=== PATIENT | male | born 1955 | race Caucasian/White ===

== ENCOUNTER 2017-11-13 05:38 | Day surgery (SDC) | payer OTHER ==
[2017-11-13] MEDS ORDERED: ACETAMINOPHEN 1000 MG/100 ML IVPB (07:00)
[2017-11-13] MEDS ORDERED: DEXAMETHASONE 4 MG/ML 1 ML INJ (07:00)
[2017-11-13] MEDS ORDERED: LIDOCAINE 2% (SDV) 5 ML INJ (07:00)
[2017-11-13] MEDS ORDERED: CEFAZOLIN 1 GM INJ (07:00)
[2017-11-13] MEDS ORDERED: SODIUM CL BACTERIOSTATIC 30 ML INJ (07:24)
[2017-11-13] MEDS ORDERED: MIDAZOLAM 1 MG/ML 2 ML INJ (07:37)
[2017-11-13] MEDS ORDERED: FENTAnyl 50 MCG/ML VIAL (07:37)
[2017-11-13] MEDS ORDERED: PROPOFOL 20 ML (07:37)
[2017-11-13] MEDS ORDERED: ONDANSETRON 4 MG INJ (07:38)
[2017-11-13] MEDS: morphine SULFATE/PF (10 MG/10 ML) INJ (09:00)
[2017-11-13] MEDS ORDERED: FENTAnyl 50 MCG/ML VIAL IV ×2 (09:30)
[2017-11-13] MEDS ORDERED: ONDANSETRON 4 MG INJ IV (09:30)
[2017-11-13] MEDS ORDERED: KETOROLAC 30 MG INJ IV (09:30)
[2017-11-13] MEDS ORDERED: HYDROCODONE/APAP (5/325) TAB PO (09:30)
[2017-11-13] MEDS ORDERED: MEPERIDINE 25 MG INJ IV (09:30)
[2017-11-13] MEDS ORDERED: DIPHENHYDRAMINE 50 MG INJ IV (09:30)
[2017-11-13] MEDS ORDERED: HYDROmorphONE 1 MG/5 ML IV SYRINGE IV ×2 (09:30)
[2017-11-13] MEDS ORDERED: LABETALOL HCL 20MG INJ IV (09:30)
[2017-11-13] MEDS ORDERED: hydrALAzine 20 MG INJ (09:40)
[2017-11-13] MEDS: hydrALAzine 20 MG INJ IV (09:43)
[2017-11-13] MEDS: HYDROCODONE/APAP (5/325) TAB PO (10:01)
== END 2017-11-13 12:07 | disposition home or self-care (01) ==
LOC: SDS 05:38
DX: M23.222 Derangement of posterior horn of medial meniscus due to old tear or injury, left knee (principal); M23.252 Derangement of posterior horn of lateral meniscus due to old tear or injury, left knee; M65.862 Other synovitis and tenosynovitis, left lower leg; I50.9 Heart failure, unspecified; E66.01 Morbid (severe) obesity due to excess calories; Z68.41 Body mass index [BMI] 40.0-44.9, adult; I10 Essential (primary) hypertension; E11.9 Type 2 diabetes mellitus without complications
CPT/HCPCS: 29880; 71045; 82962; 97161

== ENCOUNTER 2018-06-11 01:41 | Emergency (ER) | payer OTHER ==
[2018-06-11] MEDS: morphine 4 MG/ML VIAL IM (02:30)
[2018-06-11] MEDS: HYDROCODONE/APAP (10/325) TAB PO (03:22)
== END 2018-06-11 06:35 | disposition home or self-care (01) ==
LOC: E/R 01:41
DX: L76.82 Other postprocedural complications of skin and subcutaneous tissue (principal); I50.9 Heart failure, unspecified; E11.9 Type 2 diabetes mellitus without complications; E66.01 Morbid (severe) obesity due to excess calories; R07.9 Chest pain, unspecified; Z79.01 Long term (current) use of anticoagulants
CPT/HCPCS: 71045; 93005; 99284-25

== ENCOUNTER 2018-06-20 02:08 | Inpatient (IN) | payer OTHER ==
[2018-06-20 02:45] LABS: WHITE BLOOD COUNT 7.7 10^3/ul (4.8-10.8)
[2018-06-20 02:45] LABS: ABNORMAL IP MESSAGE 1; ADD MAN DIFF? NO; BASOPHILS % 0.1 % (0.0-2.0); EOSINOPHILS # 0.3 10^3/ul (0.0-0.5); EOSINOPHILS % 3.9 % (0.0-7.0); HEMATOCRIT 24.7 % (42.0-52.0); LYMPHOCYTES % 12.7 % (15.0-51.0); MEAN CORPUSCULAR HEMOGLOBIN 29.7 pg (29.0-33.0); MEAN CORPUSCULAR HGB CONC 28.3 g/dl (32.0-37.0); MEAN CORPUSCULAR VOLUME 104.7 fl (82.0-101.0); MEAN PLATELET VOLUME 11.3 fl (7.4-10.4); MONOCYTE # 0.4 10^3/ul (0.3-0.9); MONOCYTES % 5.1 % (0.0-11.0); NEUTROPHILS % 77.8 % (39.0-77.0); PLATELET COUNT 124 10^3/UL (140-415); POSITIVE DIFF @See below; RED BLOOD COUNT 2.36 10^6/ul (4.70-6.10); RED CELL DISTRIBUTION WIDTH 19.1 % (11.5-14.5)
[2018-06-20 02:54] LABS: URINE BLOOD (Dip) POC 2+ (NEGATIVE); URINE GLUCOSE (Dip) POC Negative (NEGATIVE); URINE KETONES (Dip) POC Trace (NEGATIVE); URINE LEUKOCYTE EST (Dip) POC 1+ (NEGATIVE); URINE NITRITE (Dip) POC Negative (NEGATIVE); URINE TOTAL PROTEIN POC 3+ (NEGATIVE)
[2018-06-20 03:04] LABS: INR 1.82; PROTIME 21.2 Sec (11.9-14.9); PT RATIO 1.7
[2018-06-20 03:12] LABS: ALANINE AMINOTRANSFERASE 15 IU/L (13-69); ALBUMIN 3.3 g/dl (3.3-4.9); ALBUMIN/GLOBULIN RATIO 0.82; ALKALINE PHOSPHATASE 122 IU/L (42-121); ANION GAP 16 (5-13); ASPARTATE AMINO TRANSFERASE 29 IU/L (15-46); CALCIUM 8.7 mg/dl (8.4-10.2); CARBON DIOXIDE 36 mmol/L (21-31); CHLORIDE 84 mmol/L (97-110); CREATININE 7.17 mg/dl (0.61-1.24); Estimated GFR 8 mL/min (>60); GLUCOSE 166 mg/dl (70-220); SODIUM 136 mmol/L (135-144); TOTAL PROTEIN 7.3 g/dl (6.1-8.1)
[2018-06-20 03:30] LABS: BLOOD UREA NITROGEN 223 mg/dl (7-20)
[2018-06-20] MEDS: SODIUM CHLORIDE 0.9% 1L BAG IV* (04:32)
[2018-06-20] MEDS: PIPER-TAZO 2.25 GM (PMX) 50 ML IVPB (05:17)
[2018-06-20] MEDS: VANCOMYCIN 1 GM (PMX) 250 ML IVPB (05:45)
[2018-06-20 07:00] LABS: LACTIC ACID 1.3 mmol/L (0.5-2.0)
[2018-06-20 08:44] LABS: ADD MAN DIFF? NO
[2018-06-20 08:47] LABS: WHITE BLOOD COUNT 8.3 10^3/ul (4.8-10.8)
[2018-06-20 08:47] LABS: BASOPHILS % 0.1 % (0.0-2.0); EOSINOPHILS # 0.3 10^3/ul (0.0-0.5); EOSINOPHILS % 3.3 % (0.0-7.0); HEMATOCRIT 27.3 % (42.0-52.0); LYMPHOCYTES # 0.8 10^3/ul (0.8-2.9); LYMPHOCYTES % 9.7 % (15.0-51.0); MEAN CORPUSCULAR HGB CONC 29.3 g/dl (32.0-37.0); MEAN CORPUSCULAR VOLUME 102.2 fl (82.0-101.0); MONOCYTE # 0.4 10^3/ul (0.3-0.9); MONOCYTES % 4.8 % (0.0-11.0); NEUTROPHIL # 6.7 10^3/ul (1.6-7.5); NEUTROPHILS % 81.6 % (39.0-77.0); PLATELET COUNT 121 10^3/UL (140-415); RED BLOOD COUNT 2.67 10^6/ul (4.70-6.10); RED CELL DISTRIBUTION WIDTH 20.7 % (11.5-14.5)
[2018-06-20] MEDS ORDERED: SOD CHLORIDE 0.9% 1,000 ML IV (09:20)
[2018-06-20] MEDS ORDERED: ONDANSETRON 4 MG INJ IV (09:30)
[2018-06-20] MEDS ORDERED: ACETAMINOPHEN 650 MG SUPP PR (09:30)
[2018-06-20] MEDS ORDERED: BISACODYL 10 MG SUPP PR (09:30)
[2018-06-20] MEDS ORDERED: ACETAMINOPHEN 325 MG TAB PO (09:30)
[2018-06-20] MEDS ORDERED: NACL 0.9% 3 ML SYG IV (09:30)
[2018-06-20 09:32] LABS: ALANINE AMINOTRANSFERASE 20 IU/L (13-69); ALBUMIN 3.4 g/dl (3.3-4.9); ALBUMIN/GLOBULIN RATIO 0.85; ALKALINE PHOSPHATASE 135 IU/L (42-121); ANION GAP 16 (5-13); ASPARTATE AMINO TRANSFERASE 36 IU/L (15-46); BILIRUBIN,INDIRECT 0.1 mg/dl (0-1.1); BILIRUBIN,TOTAL 0.1 mg/dl (0.2-1.3); CALCIUM 8.6 mg/dl (8.4-10.2); CARBON DIOXIDE 33 mmol/L (21-31); CHLORIDE 86 mmol/L (97-110); CREATININE 6.83 mg/dl (0.61-1.24); Estimated GFR 8 mL/min (>60); GLUCOSE 158 mg/dl (70-220); POTASSIUM 5.2 mmol/L (3.5-5.1); SODIUM 135 mmol/L (135-144); TOTAL PROTEIN 7.4 g/dl (6.1-8.1)
[2018-06-20 09:35] LABS: URIC ACID 14.7 mg/dl (3.1-7.9)
[2018-06-20 09:39] LABS: BLOOD UREA NITROGEN 225 mg/dl (7-20)
[2018-06-20 09:43] LABS: TROPONIN-I 0.074 ng/ml (0.000-0.120)
[2018-06-20] MEDS ORDERED: GLUCAGON 1 MG INJ IM (10:30)
[2018-06-20] MEDS ORDERED: DEXTROSE 50% 50 ML SYRINGE IV ×2 (10:30)
[2018-06-20] MEDS ORDERED: GLUCOSE GEL 15 GRAM TUBE PO ×2 (10:30)
[2018-06-20] MEDS ORDERED: GLUCOSE GEL 15 GRAM TUBE BUCCAL (10:30)
[2018-06-20 10:33] LABS: HEMOGLOBIN A1C 5.8 % (0-5.9)
[2018-06-20 10:56] LABS: CREATINE KINASE 40 IU/L (23-200)
[2018-06-20 11:12] LABS: IRON 41 ug/dl (35-150)
[2018-06-20 11:21] LABS: % IRON SATURATION 18 % SAT (22-52); TOTAL IRON BINDING CAPACITY 223 ug/dl (241-421)
[2018-06-20 11:24] LABS: AADO2 Arterial 33.1 mmHg (7.0-24.0); Allen Test ACCEPTAB; Arterial Base Excess 8.8 mmol/L (-3.0-3); Arterial Blood Gas Oxygen Sat 95.6 mmHG (95.0-98.0); Arterial COHb 0.9 % (0.0-3.0); Arterial Fraction of Oxyhgb 94.3 % (93.0-99.0); Arterial HCO3 35.9 mmol/L (22.0-26.0); Arterial MetHb 0.5 % (0.0-1.5); Arterial pCO2 67.3 mmhg (35-45); MODE TRACH COLLAR; Site Right Radial
[2018-06-20] MEDS: ALLOPURINOL 100 MG TAB PO (11:40)
[2018-06-20] MEDS: FAMOTIDINE 20 MG INJ IV (11:40)
[2018-06-20] MEDS: INSULIN ASPART [NOVOLOG] 3 ML PEN SC ×3 (11:47→23:45)
[2018-06-20] MEDS ORDERED: MANNITOL 25% 50 ML IV (12:30)
[2018-06-20] MEDS ORDERED: HEPARIN 1000 UNITS/ML 10 ML INJ CATHETER (12:30)
[2018-06-20] MEDS ORDERED: SODIUM CHLORIDE 0.9% 1L BAG IV (12:30)
[2018-06-20 13:43] LABS: B-TYPE NATRIURETIC PEPTIDE 62500 PG/ML (0-125)
[2018-06-20 14:08] LABS: ADD UMIC YES; UR ASCORBIC ACID NEGATIVE (NEGATIVE); UR BACTERIA MANY /HPF (NONE SEEN); UR BILIRUBIN (Dip) NEGATIVE (NEGATIVE); UR BLOOD (Dip) 3+ mg/dL (NEGATIVE); UR CLARITY TURBID (CLEAR); UR COLOR AMBER (YELLOW); UR GLUCOSE (Dip) NEGATIVE (NEGATIVE); UR KETONES (Dip) NEGATIVE (NEGATIVE); UR LEUKOCYTE ESTERASE (Dip) 3+ Leu/ul (NEGATIVE); UR MUCUS FEW /HPF (NONE SEEN); UR NITRITE (Dip) NEGATIVE (NEGATIVE); UR RBC > 182 /HPF (0-5); UR RENAL EPITHELIAL CELL FEW /HPF (NONE SEEN); UR SPECIFIC GRAVITY (Dip) 1.018 (1.003-1.030); UR SQUAMOUS EPITHELIAL CELL FEW /HPF (FEW); UR TOTAL PROTEIN (Dip) 2+ mg/dl (NEGATIVE); UR UROBILINOGEN (Dip) NEGATIVE (NEGATIVE); UR WBC > 182 /HPF (0-5)
[2018-06-20 15:18] LABS: HAAIG REFLEX REFLEX FILED
[2018-06-20 15:45] LABS: CREATINE KINASE 38 IU/L (23-200)
[2018-06-20 15:57] LABS: CK INDEX 16.7; TROPONIN-I 0.053 ng/ml (0.000-0.120)
[2018-06-20 15:58] LABS: CK-MB 6.34 ng/ml (0.0-2.4)
[2018-06-20 16:25] LABS: HEPATITIS B SURFACE ANTIGEN NEGATIVE (NEGATIVE)
[2018-06-20 16:43] LABS: HEPATITIS B CORE ANTIBODY NEGATIVE (NEGATIVE); HEPATITIS C VIRAL ANTIBODY NEGATIVE (NEGATIVE)
[2018-06-20] MEDS: morphine SULFATE/PF (2 MG/2 ML) SYG IV (17:26)
[2018-06-20] MEDS: HEPARIN 5,000 UNIT/1 ML VIAL SC (21:00)
[2018-06-21] MEDS: INSULIN GLARGINE [LANTus] (100 UNITS/ML) SYG SC ×2 (01:01→21:06)
[2018-06-21] MEDS: LORAZEPAM 2 MG INJ IV ×2 (01:02→11:18)
[2018-06-21] MEDS: ACCU-CHEK XX (02:00)
[2018-06-21 05:39] LABS: ADD MAN DIFF? NO
[2018-06-21 05:47] LABS: BASOPHILS % 0.3 % (0.0-2.0); EOSINOPHILS # 0.3 10^3/ul (0.0-0.5); HEMATOCRIT 25.9 % (42.0-52.0); HEMOGLOBIN 7.6 g/dl (14.0-18.0); LYMPHOCYTES # 0.6 10^3/ul (0.8-2.9); LYMPHOCYTES % 6.3 % (15.0-51.0); MEAN CORPUSCULAR HEMOGLOBIN 29.7 pg (29.0-33.0); MEAN CORPUSCULAR HGB CONC 29.3 g/dl (32.0-37.0); MEAN CORPUSCULAR VOLUME 101.2 fl (82.0-101.0); MEAN PLATELET VOLUME 12.2 fl (7.4-10.4); MONOCYTE # 0.4 10^3/ul (0.3-0.9); NEUTROPHIL # 8.2 10^3/ul (1.6-7.5); PLATELET COUNT 136 10^3/UL (140-415); RED BLOOD COUNT 2.56 10^6/ul (4.70-6.10); RED CELL DISTRIBUTION WIDTH 20.8 % (11.5-14.5)
[2018-06-21 05:47] LABS: WHITE BLOOD COUNT 9.5 10^3/ul (4.8-10.8)
[2018-06-21 06:07] LABS: ANION GAP 16 (5-13); CALCIUM 8.4 mg/dl (8.4-10.2); CARBON DIOXIDE 35 mmol/L (21-31); CHLORIDE 84 mmol/L (97-110); CHOL/HDL RATIO 4.7 RATIO; CHOLESTEROL 91 mg/dl (100-200); Estimated GFR 7 mL/min (>60); GLUCOSE 121 mg/dl (70-220); HDL CHOLESTEROL 19 mg/dl (30-78); LDL CHOLESTEROL,CALCULATED 41 mg/dl; MAGNESIUM 3.4 mg/dl (1.7-2.5); POTASSIUM 5.3 mmol/L (3.5-5.1); SODIUM 135 mmol/L (135-144); TRIGLYCERIDES 154 mg/dl (0-149)
[2018-06-21] MEDS: BUMETANIDE 1 MG INJ IV ×2 (06:08→17:45)
[2018-06-21 06:22] LABS: BLOOD UREA NITROGEN 228 mg/dl (7-20)
[2018-06-21] MEDS: INSULIN ASPART [NOVOLOG] 3 ML PEN SC ×4 (07:35→20:57)
[2018-06-21] MEDS: HEPARIN 5,000 UNIT/1 ML VIAL SC ×3 (09:00→21:00)
[2018-06-21] MEDS ORDERED: NEBIVOLOL 5 MG TAB PO (09:00)
[2018-06-21] MEDS: NEBIVOLOL 5 MG TAB PO (09:00)
[2018-06-21] MEDS: CHOLECALCIFEROL 1,000 UNIT TAB PO (09:37)
[2018-06-21] MEDS: CYANOCOBALAMIN 100 MCG TAB PO (09:37)
[2018-06-21] MEDS: FOLIC ACID 1 MG TAB PO (09:37)
[2018-06-21] MEDS: ALLOPURINOL 100 MG TAB PO (09:37)
[2018-06-21] MEDS: FAMOTIDINE 20 MG INJ IV (09:37)
[2018-06-21] MEDS: AMIODARONE 200 MG TAB PO (09:44)
[2018-06-21 10:24] LABS: INR 1.62; PARTIAL THROMBOPLASTIN TIME 34.8 Sec (23.0-35.0); PROTIME 19.3 Sec (11.9-14.9); PT RATIO 1.5
[2018-06-21] MEDS ORDERED: HEPARIN (10 UNITS/ML) 5ML SYG (10:50)
[2018-06-21] MEDS ORDERED: COLLAGENASE 5 GM (UD JAR) TOP (13:00)
[2018-06-21] MEDS: COLLAGENASE 5 GM (UD JAR) TOP (13:00)
[2018-06-21] MEDS ORDERED: PIPER-TAZO 3.375 GM IV (PMX) 100 ML IVPB (14:00)
[2018-06-21] MEDS: PIPER-TAZO 2.25 GM (PMX) 50 ML IVPB ×2 (17:45→21:09)
[2018-06-21] MEDS: DESMOPRESSIN 20 MCG in SOD CHLORIDE 0.9% 50 ML IVPB (22:42)
[2018-06-22] MEDS: ACCU-CHEK XX (01:44)
[2018-06-22] MEDS: MANNITOL 20% 62.5 ML IV ×4 (02:03→16:21)
[2018-06-22] MEDS: ALBUMIN HUMAN 25% 100 ML IV (02:16)
[2018-06-22] MEDS ORDERED: HEPARIN 1000 UNITS/ML 10 ML INJ (04:36)
[2018-06-22] MEDS: HEPARIN 1000 UNITS/ML 10 ML INJ CATHETER ×2 (04:54→17:33)
[2018-06-22] MEDS: PIPER-TAZO 2.25 GM (PMX) 50 ML IVPB ×3 (05:24→22:00)
[2018-06-22] MEDS: BUMETANIDE 1 MG INJ IV ×2 (05:27→18:27)
[2018-06-22 06:00] LABS: ADD MAN DIFF? NO
[2018-06-22 06:13] LABS: WHITE BLOOD COUNT 6.6 10^3/ul (4.8-10.8)
[2018-06-22 06:13] LABS: ABNORMAL IP MESSAGE 1; BASOPHILS % 0.2 % (0.0-2.0); EOSINOPHILS # 0.3 10^3/ul (0.0-0.5); EOSINOPHILS % 4.7 % (0.0-7.0); HEMATOCRIT 23.7 % (42.0-52.0); LYMPHOCYTES # 0.5 10^3/ul (0.8-2.9); LYMPHOCYTES % 7.3 % (15.0-51.0); MEAN CORPUSCULAR HEMOGLOBIN 29.9 pg (29.0-33.0); MEAN CORPUSCULAR HGB CONC 29.5 g/dl (32.0-37.0); MEAN CORPUSCULAR VOLUME 101.3 fl (82.0-101.0); MEAN PLATELET VOLUME 11.9 fl (7.4-10.4); MONOCYTE # 0.3 10^3/ul (0.3-0.9); MONOCYTES % 4.6 % (0.0-11.0); NEUTROPHIL # 5.4 10^3/ul (1.6-7.5); NEUTROPHILS % 82.6 % (39.0-77.0); PLATELET COUNT 152 10^3/UL (140-415); POSITIVE DIFF @See below; RED BLOOD COUNT 2.34 10^6/ul (4.70-6.10); RED CELL DISTRIBUTION WIDTH 20.7 % (11.5-14.5)
[2018-06-22 06:37] LABS: INR 1.42; PROTIME 17.5 Sec (11.9-14.9); PT RATIO 1.4
[2018-06-22 06:46] LABS: ANION GAP 15 (5-13); CALCIUM 8.3 mg/dl (8.4-10.2); CARBON DIOXIDE 33 mmol/L (21-31); CHLORIDE 87 mmol/L (97-110); CREATININE 5.57 mg/dl (0.61-1.24); Estimated GFR 10 mL/min (>60); GLUCOSE 95 mg/dl (70-220); POTASSIUM 4.5 mmol/L (3.5-5.1); SODIUM 135 mmol/L (135-144)
[2018-06-22 06:50] LABS: MAGNESIUM 2.9 mg/dl (1.7-2.5)
[2018-06-22 06:50] LABS: PHOSPHORUS 7.7 mg/dl (2.5-4.9)
[2018-06-22 07:00] LABS: BLOOD UREA NITROGEN 160 mg/dl (7-20)
[2018-06-22] MEDS: NEBIVOLOL 5 MG TAB PO (08:29)
[2018-06-22] MEDS: FOLIC ACID 1 MG TAB PO (08:41)
[2018-06-22] MEDS: CYANOCOBALAMIN 100 MCG TAB PO (08:41)
[2018-06-22] MEDS: FAMOTIDINE 20 MG INJ IV (08:41)
[2018-06-22] MEDS: ALLOPURINOL 100 MG TAB PO (08:41)
[2018-06-22] MEDS: COLLAGENASE 5 GM (UD JAR) TOP (08:41)
[2018-06-22] MEDS: CHOLECALCIFEROL 1,000 UNIT TAB PO (08:44)
[2018-06-22] MEDS: HEPARIN 5,000 UNIT/1 ML VIAL SC (09:00)
[2018-06-22] MEDS: AMIODARONE 200 MG TAB PO (09:33)
[2018-06-22 11:03] LABS: AADO2 Arterial 55.3 mmHg (7.0-24.0); Allen Test ACCEPTAB; Arterial Base Excess 7.1 mmol/L (-3.0-3); Arterial Blood Gas Oxygen Sat 95.3 mmHG (95.0-98.0); Arterial COHb 0.9 % (0.0-3.0); Arterial Fraction of Oxyhgb 94.2 % (93.0-99.0); Arterial HCO3 32.7 mmol/L (22.0-26.0); Arterial MetHb 0.3 % (0.0-1.5); Arterial pCO2 53.6 mmhg (35-45); MODE TRACH COLLAR; Site Right Radial
[2018-06-22] MEDS: Insulin NOVOLOG SS MILD Algorithm (NPO/TPN/ENTERAL FEEDS) SC ×2 (11:52→18:43)
[2018-06-22] MEDS ORDERED: INSULIN ASPART [NOVOLOG] 3 ML PEN SC (12:00)
[2018-06-22] MEDS: morphine 4 MG/ML VIAL IV (15:08)
[2018-06-22] MEDS: SOD CHLORIDE 0.9% 250 ML IV* (16:00)
[2018-06-22 16:11] LABS: IMMEDIATE SPIN CROSSMATCH 1 3
[2018-06-22] MEDS: INSULIN GLARGINE [LANTus] (100 UNITS/ML) SYG SC (20:04)
[2018-06-23 00:30] LABS: AADO2 Arterial 63.8 mmHg (7.0-24.0); Allen Test ACCEPTAB; Arterial Base Excess 2.7 mmol/L (-3.0-3); Arterial Blood Gas Oxygen Sat 95.6 mmHG (95.0-98.0); Arterial COHb 0.8 % (0.0-3.0); Arterial Fraction of Oxyhgb 94.5 % (93.0-99.0); Arterial HCO3 27.7 mmol/L (22.0-26.0); Arterial MetHb 0.3 % (0.0-1.5); Arterial pCO2 44.9 mmhg (35-45); MODE TRACH COLLAR; Site Right Radial
[2018-06-23] MEDS: ACCU-CHEK XX (02:00)
[2018-06-23 04:10] LABS: OCCULT BLOOD STOOL NEGATIVE (NEGATIVE)
[2018-06-23 04:50] LABS: AADO2 Arterial 48.1 mmHg (7.0-24.0); Allen Test ACCEPTAB; Arterial Base Excess 4.9 mmol/L (-3.0-3); Arterial Blood Gas Oxygen Sat 96.6 mmHG (95.0-98.0); Arterial Fraction of Oxyhgb 95.3 % (93.0-99.0); Arterial HCO3 30.5 mmol/L (22.0-26.0); Arterial MetHb 0.3 % (0.0-1.5); Arterial pCO2 49.6 mmhg (35-45); MODE TRACH COLLAR; Site Right Radial
[2018-06-23 05:10] LABS: ADD MAN DIFF? NO
[2018-06-23 05:17] LABS: BASOPHILS % 0.3 % (0.0-2.0); EOSINOPHILS # 0.2 10^3/ul (0.0-0.5); EOSINOPHILS % 2.1 % (0.0-7.0); HEMOGLOBIN 7.5 g/dl (14.0-18.0); LYMPHOCYTES # 0.9 10^3/ul (0.8-2.9); LYMPHOCYTES % 8.8 % (15.0-51.0); MEAN PLATELET VOLUME 11.2 fl (7.4-10.4); MONOCYTE # 0.5 10^3/ul (0.3-0.9); NEUTROPHIL # 8.2 10^3/ul (1.6-7.5); NEUTROPHILS % 83.2 % (39.0-77.0); PLATELET COUNT 166 10^3/UL (140-415); RED CELL DISTRIBUTION WIDTH 20.9 % (11.5-14.5)
[2018-06-23 05:17] LABS: WHITE BLOOD COUNT 9.8 10^3/ul (4.8-10.8)
[2018-06-23] MEDS: PIPER-TAZO 2.25 GM (PMX) 50 ML IVPB ×3 (05:18→21:10)
[2018-06-23] MEDS: BUMETANIDE 1 MG INJ IV ×2 (05:18→17:05)
[2018-06-23 05:41] LABS: ANION GAP 13 (5-13); BLOOD UREA NITROGEN 111 mg/dl (7-20); CALCIUM 8.5 mg/dl (8.4-10.2); CARBON DIOXIDE 33 mmol/L (21-31); CHLORIDE 91 mmol/L (97-110); CREATININE 5.13 mg/dl (0.61-1.24); Estimated GFR 11 mL/min (>60); GLUCOSE 116 mg/dl (70-220); POTASSIUM 4.7 mmol/L (3.5-5.1); SODIUM 137 mmol/L (135-144)
[2018-06-23 05:42] LABS: PHOSPHORUS 6.5 mg/dl (2.5-4.9)
[2018-06-23 05:42] LABS: MAGNESIUM 2.7 mg/dl (1.7-2.5)
[2018-06-23] MEDS: Insulin NOVOLOG SS MILD Algorithm (NPO/TPN/ENTERAL FEEDS) SC ×4 (05:47→18:30)
[2018-06-23] MEDS: NEBIVOLOL 5 MG TAB PO (09:00)
[2018-06-23] MEDS: ALLOPURINOL 100 MG TAB PO (09:15)
[2018-06-23] MEDS: AMIODARONE 200 MG TAB PO (09:15)
[2018-06-23] MEDS: CHOLECALCIFEROL 1,000 UNIT TAB PO (09:15)
[2018-06-23] MEDS: CYANOCOBALAMIN 100 MCG TAB PO (09:15)
[2018-06-23] MEDS: COLLAGENASE 5 GM (UD JAR) TOP (09:16)
[2018-06-23] MEDS: FOLIC ACID 1 MG TAB PO (09:22)
[2018-06-23] MEDS: FAMOTIDINE 20 MG INJ IV (09:22)
[2018-06-23] MEDS: MANNITOL 20% 62.5 ML IV ×2 (13:24→15:26)
[2018-06-23] MEDS: ALBUMIN HUMAN 25% 100 ML IV (14:22)
[2018-06-23] MEDS ORDERED: HEPARIN 1000 UNITS/ML 10 ML INJ (16:04)
[2018-06-23] MEDS: HEPARIN 1000 UNITS/ML 10 ML INJ CATHETER (16:19)
[2018-06-23] MEDS: INSULIN GLARGINE [LANTus] (100 UNITS/ML) SYG SC (20:11)
[2018-06-24] MEDS: ACCU-CHEK XX (02:00)
[2018-06-24 05:13] LABS: ADD MAN DIFF? NO
[2018-06-24 05:21] LABS: BASOPHILS % 0.1 % (0.0-2.0); EOSINOPHILS # 0.4 10^3/ul (0.0-0.5); EOSINOPHILS % 3.5 % (0.0-7.0); HEMATOCRIT 25.5 % (42.0-52.0); HEMOGLOBIN 7.4 g/dl (14.0-18.0); LYMPHOCYTES # 0.9 10^3/ul (0.8-2.9); LYMPHOCYTES % 8.5 % (15.0-51.0); MEAN CORPUSCULAR HEMOGLOBIN 29.5 pg (29.0-33.0); MEAN CORPUSCULAR VOLUME 101.6 fl (82.0-101.0); MEAN PLATELET VOLUME 11.3 fl (7.4-10.4); MONOCYTE # 0.6 10^3/ul (0.3-0.9); MONOCYTES % 5.5 % (0.0-11.0); NEUTROPHIL # 8.2 10^3/ul (1.6-7.5); NEUTROPHILS % 81.8 % (39.0-77.0); PLATELET COUNT 143 10^3/UL (140-415); RED BLOOD COUNT 2.51 10^6/ul (4.70-6.10); RED CELL DISTRIBUTION WIDTH 20.7 % (11.5-14.5)
[2018-06-24] MEDS: PIPER-TAZO 2.25 GM (PMX) 50 ML IVPB ×3 (05:40→22:09)
[2018-06-24] MEDS: BUMETANIDE 1 MG TAB GTB ×2 (05:40→18:13)
[2018-06-24] MEDS: Insulin NOVOLOG SS MILD Algorithm (NPO/TPN/ENTERAL FEEDS) SC ×5 (05:44→23:50)
[2018-06-24 06:02] LABS: ANION GAP 13 (5-13); BLOOD UREA NITROGEN 83 mg/dl (7-20); CALCIUM 8.8 mg/dl (8.4-10.2); CARBON DIOXIDE 29 mmol/L (21-31); CHLORIDE 95 mmol/L (97-110); CREATININE 4.62 mg/dl (0.61-1.24); Estimated GFR 13 mL/min (>60); GLUCOSE 112 mg/dl (70-220); POTASSIUM 4.4 mmol/L (3.5-5.1); SODIUM 137 mmol/L (135-144)
[2018-06-24] MEDS: NEBIVOLOL 5 MG TAB PO (08:30)
[2018-06-24] MEDS: FAMOTIDINE 20 MG INJ IV (08:47)
[2018-06-24] MEDS: AMIODARONE 200 MG TAB PO ×2 (08:48→09:18)
[2018-06-24] MEDS: CHOLECALCIFEROL 1,000 UNIT TAB PO (08:48)
[2018-06-24] MEDS: FOLIC ACID 1 MG TAB PO (08:48)
[2018-06-24] MEDS: COLLAGENASE 5 GM (UD JAR) TOP ×2 (08:48→22:08)
[2018-06-24] MEDS: CYANOCOBALAMIN 100 MCG TAB PO (08:48)
[2018-06-24] MEDS: ALLOPURINOL 100 MG TAB PO ×2 (08:49→09:18)
[2018-06-24] MEDS ORDERED: LIDOCAINE 1% (MDV) 20 ML INJ (10:57)
[2018-06-24] MEDS ORDERED: HEPARIN 1000 UNITS/ML 10 ML INJ (10:57)
[2018-06-24] MEDS: LORAZEPAM 2 MG INJ IV (13:07)
[2018-06-24] MEDS: INSULIN GLARGINE [LANTus] (100 UNITS/ML) SYG SC (20:00)
[2018-06-24] MEDS: morphine 4 MG/ML VIAL IV (21:12)
[2018-06-25] MEDS: LORAZEPAM 2 MG INJ IV ×2 (00:09→23:45)
[2018-06-25] MEDS: INSULIN GLARGINE [LANTus] (100 UNITS/ML) SYG SC ×2 (00:31→21:35)
[2018-06-25] MEDS: ACCU-CHEK XX (02:00)
[2018-06-25] MEDS: Insulin NOVOLOG SS MILD Algorithm (NPO/TPN/ENTERAL FEEDS) SC ×3 (06:00→18:00)
[2018-06-25] MEDS: PIPER-TAZO 2.25 GM (PMX) 50 ML IVPB ×3 (06:21→21:19)
[2018-06-25] MEDS: BUMETANIDE 1 MG TAB GTB ×2 (06:22→18:01)
[2018-06-25] MEDS: NEBIVOLOL 5 MG TAB PO (09:00)
[2018-06-25] MEDS: FAMOTIDINE 20 MG INJ IV (09:39)
[2018-06-25] MEDS: FOLIC ACID 1 MG TAB PO (09:39)
[2018-06-25] MEDS: ALLOPURINOL 100 MG TAB PO (09:39)
[2018-06-25] MEDS: CYANOCOBALAMIN 100 MCG TAB PO (09:39)
[2018-06-25] MEDS: CHOLECALCIFEROL 1,000 UNIT TAB PO (09:39)
[2018-06-25] MEDS: AMIODARONE 200 MG TAB PO (09:39)
[2018-06-25] MEDS: COLLAGENASE 5 GM (UD JAR) TOP (09:39)
[2018-06-25] MEDS: BARIUM SULFATE 135 ML (E-Z HD) PO (11:34)
[2018-06-25] MEDS ORDERED: HEPARIN 1000 UNITS/ML 10 ML INJ (17:07)
[2018-06-25] MEDS: HEPARIN 1000 UNITS/ML 10 ML INJ CATHETER (18:21)
[2018-06-25] MEDS: QUETIAPINE 25 MG TAB PO (21:20)
[2018-06-26] MEDS: ACCU-CHEK XX (02:00)
[2018-06-26] MEDS: BUMETANIDE 1 MG TAB GTB ×2 (05:22→17:38)
[2018-06-26] MEDS: Insulin NOVOLOG SS MILD Algorithm (NPO/TPN/ENTERAL FEEDS) SC ×4 (05:23→17:45)
[2018-06-26] MEDS: LORAZEPAM 2 MG INJ IV (05:23)
[2018-06-26] MEDS: PIPER-TAZO 2.25 GM (PMX) 50 ML IVPB ×3 (05:23→21:43)
[2018-06-26] MEDS: NEBIVOLOL 5 MG TAB PO (09:00)
[2018-06-26] MEDS: COLLAGENASE 5 GM (UD JAR) TOP (09:25)
[2018-06-26] MEDS: CHOLECALCIFEROL 1,000 UNIT TAB PO (09:26)
[2018-06-26] MEDS: FAMOTIDINE 20 MG INJ IV (09:26)
[2018-06-26] MEDS: CYANOCOBALAMIN 100 MCG TAB PO (09:26)
[2018-06-26] MEDS: AMIODARONE 200 MG TAB PO (09:26)
[2018-06-26] MEDS: FOLIC ACID 1 MG TAB PO (09:26)
[2018-06-26] MEDS: ALLOPURINOL 100 MG TAB PO (09:26)
[2018-06-26] MEDS: QUETIAPINE 25 MG TAB PO (21:44)
[2018-06-26] MEDS: INSULIN GLARGINE [LANTus] (100 UNITS/ML) SYG SC (22:20)
[2018-06-27] MEDS: ACCU-CHEK XX (02:00)
[2018-06-27] MEDS: Insulin NOVOLOG SS MILD Algorithm (NPO/TPN/ENTERAL FEEDS) SC ×4 (02:42→17:29)
[2018-06-27] MEDS: BUMETANIDE 1 MG TAB GTB ×2 (05:22→17:25)
[2018-06-27] MEDS: PIPER-TAZO 2.25 GM (PMX) 50 ML IVPB ×2 (05:22→14:30)
[2018-06-27 08:12] LABS: ADD MAN DIFF? NO; BASOPHILS % 0.1 % (0.0-2.0); EOSINOPHILS # 0.3 10^3/ul (0.0-0.5); EOSINOPHILS % 4.2 % (0.0-7.0); HEMATOCRIT 26.5 % (42.0-52.0); HEMOGLOBIN 7.7 g/dl (14.0-18.0); LYMPHOCYTES # 1.1 10^3/ul (0.8-2.9); LYMPHOCYTES % 13.2 % (15.0-51.0); MEAN CORPUSCULAR HEMOGLOBIN 30.6 pg (29.0-33.0); MEAN CORPUSCULAR HGB CONC 29.1 g/dl (32.0-37.0); MEAN CORPUSCULAR VOLUME 105.2 fl (82.0-101.0); MEAN PLATELET VOLUME 10.6 fl (7.4-10.4); MONOCYTE # 0.5 10^3/ul (0.3-0.9); MONOCYTES % 6.5 % (0.0-11.0); NEUTROPHILS % 75.2 % (39.0-77.0); NUCLEATED RED BLOOD CELLS% 0.4 /100WBC (0.0-0.0); PLATELET COUNT 129 10^3/UL (140-415); RED BLOOD COUNT 2.52 10^6/ul (4.70-6.10)
[2018-06-27 08:26] LABS: AADO2 Arterial 114.7 mmHg (7.0-24.0); Allen Test ACCEPTAB; Arterial Base Excess 0.4 mmol/L (-3.0-3); Arterial COHb 1.2 % (0.0-3.0); Arterial Fraction of Oxyhgb 94.6 % (93.0-99.0); Arterial HCO3 28.4 mmol/L (22.0-26.0); Arterial MetHb 0.3 % (0.0-1.5); Arterial pCO2 66.1 mmhg (35-45); MODE TRACH COLLAR; Site Right Radial
[2018-06-27 08:33] LABS: ALANINE AMINOTRANSFERASE 15 IU/L (13-69); ALBUMIN 3.4 g/dl (3.3-4.9); ALBUMIN/GLOBULIN RATIO 0.85; ALKALINE PHOSPHATASE 90 IU/L (42-121); ANION GAP 14 (5-13); ASPARTATE AMINO TRANSFERASE 18 IU/L (15-46); BLOOD UREA NITROGEN 69 mg/dl (7-20); CALCIUM 8.9 mg/dl (8.4-10.2); CARBON DIOXIDE 29 mmol/L (21-31); CHLORIDE 95 mmol/L (97-110); CREATININE 5.55 mg/dl (0.61-1.24); Estimated GFR 10 mL/min (>60); GLUCOSE 120 mg/dl (70-220); POTASSIUM 4.7 mmol/L (3.5-5.1); SODIUM 138 mmol/L (135-144); TOTAL PROTEIN 7.4 g/dl (6.1-8.1)
[2018-06-27] MEDS: FOLIC ACID 1 MG TAB PO (08:44)
[2018-06-27] MEDS: CYANOCOBALAMIN 100 MCG TAB PO (08:44)
[2018-06-27] MEDS: FAMOTIDINE 20 MG TAB PO (08:44)
[2018-06-27] MEDS: COLLAGENASE 5 GM (UD JAR) TOP (08:44)
[2018-06-27] MEDS: CHOLECALCIFEROL 1,000 UNIT TAB PO (08:44)
[2018-06-27] MEDS: ALLOPURINOL 100 MG TAB PO (08:44)
[2018-06-27] MEDS: AMIODARONE 200 MG TAB PO (09:00)
[2018-06-27] MEDS: NEBIVOLOL 5 MG TAB PO (09:00)
[2018-06-27] MEDS: ALBUMIN HUMAN 25% 100 ML IV (12:00)
[2018-06-27] MEDS: HEPARIN 1000 UNITS/ML 10 ML INJ CATHETER (13:59)
[2018-06-27] MEDS: VANCOMYCIN HCL 250 MG/5ML POSYG PO ×2 (17:25→21:18)
[2018-06-27] MEDS: QUETIAPINE 25 MG TAB PO (21:17)
[2018-06-27] MEDS: INSULIN GLARGINE [LANTus] (100 UNITS/ML) SYG SC (21:23)
[2018-06-28] MEDS: ACCU-CHEK XX (02:00)
[2018-06-28] MEDS: morphine 4 MG/ML VIAL IV (04:06)
[2018-06-28] MEDS: Insulin NOVOLOG SS MILD Algorithm (NPO/TPN/ENTERAL FEEDS) SC ×4 (06:00→18:00)
[2018-06-28] MEDS: BUMETANIDE 1 MG TAB GTB ×2 (06:26→18:00)
[2018-06-28] MEDS: NEBIVOLOL 5 MG TAB PO (09:00)
[2018-06-28] MEDS: CYANOCOBALAMIN 100 MCG TAB PO (09:14)
[2018-06-28] MEDS: FOLIC ACID 1 MG TAB PO (09:15)
[2018-06-28] MEDS: AMIODARONE 200 MG TAB PO (09:15)
[2018-06-28] MEDS: QUETIAPINE 25 MG TAB PO ×2 (09:15→20:36)
[2018-06-28] MEDS: ALLOPURINOL 100 MG TAB PO (09:15)
[2018-06-28] MEDS: CHOLECALCIFEROL 1,000 UNIT TAB PO (09:15)
[2018-06-28] MEDS: COLLAGENASE 5 GM (UD JAR) TOP (09:15)
[2018-06-28] MEDS: FAMOTIDINE 20 MG TAB PO (09:15)
[2018-06-28] MEDS: VANCOMYCIN HCL 250 MG/5ML POSYG PO ×4 (09:19→20:36)
[2018-06-28] MEDS: ALBUMIN HUMAN 25% 100 ML IV ×2 (15:02→15:57)
[2018-06-28] MEDS ORDERED: morphine LIQ (10 MG/5 ML) CUP PO (15:30)
[2018-06-28] MEDS: HEPARIN 1000 UNITS/ML 10 ML INJ CATHETER (18:06)
[2018-06-28] MEDS: INSULIN GLARGINE [LANTus] (100 UNITS/ML) SYG SC (22:17)
[2018-06-29] MEDS: Insulin NOVOLOG SS MILD Algorithm (NPO/TPN/ENTERAL FEEDS) SC (00:41)
[2018-06-29] MEDS: ACCU-CHEK XX (02:08)
== END 2018-06-29 04:50 | disposition short-term general hospital (02) | DRG 673 ==
LOC: TEL 06-24 17:25 → E/R 02:08 → ICU 06-23 11:33 → 6WM 06-22 21:24 → TEL 06-27 19:03 → ICU 06-22 22:13
PROVIDERS: Internal Medicine
PROC: 02H633Z Insertion of Infusion Device into Right Atrium, Percutaneous Approach (ICD-10-PCS; principal; 2018-06-24 10:25)
PROC: 0JH63XZ Insertion of Tunneled Vascular Access Device into Chest Subcutaneous Tissue and Fascia, Percutaneous Approach (ICD-10-PCS; 2018-06-24 10:25)
PROC: 5A1D70Z Performance of Urinary Filtration, Intermittent, Less than 6 Hours Per Day (ICD-10-PCS; 2018-06-24 10:25)
PROC: 06HY33Z Insertion of Infusion Device into Lower Vein, Percutaneous Approach (ICD-10-PCS; 2018-06-24 10:25)
PROC: 5A1945Z Respiratory Ventilation, 24-96 Consecutive Hours (ICD-10-PCS; 2018-06-24 10:25)
PROC: 0B21XFZ Change Tracheostomy Device in Trachea, External Approach (ICD-10-PCS; 2018-06-24 10:25)
DX: N17.0 Acute kidney failure with tubular necrosis (principal); I50.31 Acute diastolic (congestive) heart failure; J96.21 Acute and chronic respiratory failure with hypoxia; J96.22 Acute and chronic respiratory failure with hypercapnia; I13.2 Hypertensive heart and chronic kidney disease with heart failure and with stage 5 chronic kidney disease, or end stage renal disease; Z68.42 Body mass index [BMI] 45.0-49.9, adult; E66.2 Morbid (severe) obesity with alveolar hypoventilation; N18.6 End stage renal disease; E11.22 Type 2 diabetes mellitus with diabetic chronic kidney disease; I48.2 Chronic atrial fibrillation; D63.1 Anemia in chronic kidney disease; M10.9 Gout, unspecified; D69.6 Thrombocytopenia, unspecified; Z93.1 Gastrostomy status; Z93.0 Tracheostomy status; Z99.2 Dependence on renal dialysis; Z79.4 Long term (current) use of insulin
CPT/HCPCS: 36415; 36430; 36561; 36600; 71045; 74230; 76775; 80048; 80053; 80061; 81001; 81003; 82270; 82550; 82553; 82728; 82803; 82962; 83036; 83540; 83605; 83735; 83880; 84100; 84439; 84443; 84484; 84560; 85025; 85610; 85730; 86644; 86704; 86709; 86803; 86850; 86900; 86901; 86920; 87040; 87075; 87081; 87086; 87340; 89190; 90935; 92610; 92611; 93005; 93306; 93970; 94002; 94003; 96360; 97110; 97162; 97530; 99291-25